=== PATIENT | female | born 1970 | race Caucasian/White ===

== ENCOUNTER 2019-12-18 14:53 | Outpatient (CLI) | payer BC, SELFPAY ==
[2019-12-18 15:06] LABS: Basophils Percent Auto 0.5 % (0.2-1.2); Eosinophils Absolute Auto 0.2 K/mm3 (0-0.3); Eosinophils Percent Auto 2.7 % (0-4.4); Hematocrit 39.4 % (37.0-47.0); Hemoglobin 13.6 g/dL (12.0-15.0); Immature Granulocyte Absolute 0.01 K/mm3 (0.00-0.031); Immature Granulocyte Percent A 0.2 % (0-0.5); Lymphocytes Absolute Auto 1.97 K/mm3 (0.9-3.2); Lymphocytes Percent Auto 33.4 % (18.3-44.2); Mean Corpuscular HGB Conc 34.5 g/dl (32-36); Mean Corpuscular Hemoglobin 32.9 pg (26-34); Mean Corpuscular Volume 95.4 fl (80-100); Mean Platelet Volume 9.8 fl (7.4-10.4); Monocytes Absolute Auto 0.5 K/mm3 (0.1-0.6); Monocytes Percent Auto 8.3 % (2.6-8.5); Neutrophils Absolute Auto 3.2 K/mm3 (1.3-6.7); Neutrophils Percent Auto 54.9 % (45.5-73.1); Platelet Count Result 222 k/mm3 (150-375); Red Blood Count 4.13 M/mm3 (4.2-5.4); Red Cell Distribution Width 11.9 % (11.5-14.5); White Blood Count 5.9 K/mm3 (4.5-10.0)
[2019-12-18 16:49] LABS: Alanine Aminotransferase 13 U/L (4-35); Albumin Level 4.1 g/dL (3.5-5.1); Alkaline Phosphatase 75 U/L (38-126); Aspartate Amino Transferase 24 U/L (14-36); Bilirubin,Total 0.4 mg/dL (0.2-1.3); Blood Urea Nitrogen 15 mg/dL (7-17); Calcium 9.1 mg/dL (8.4-10.2); Carbon Dioxide 21 mmol/L (22-30); Chloride 107 mmol/L (98-107); Estimated Glomerular Filt Rate > 60; Glucose 137 mg/dL (65-105); Potassium 3.9 mmol/L (3.4-5.0); Sodium 135 mmol/L (137-145)
[2019-12-21 12:41] LABS: CA 27.29 17 U/mL (<38)
== END 2019-12-18 14:54 | disposition home or self-care (01) ==
LOC: ANHLAB 14:53
PROVIDERS: PCP Family Medicine; Visit Provider Internal Medicine Hematology & Oncology
DX: C50.912 Malignant neoplasm of unspecified site of left female breast (principal); Z17.0 Estrogen receptor positive status [ER+]
CPT/HCPCS: 36415; 80053; 85025; 86300

== ENCOUNTER 2020-04-30 10:42 | Outpatient (CLI) | payer BC, SELFPAY ==
--- NOTE | ~2020-04-30 | MM_ITS ---
EXAMINATION: MM screening [facility] BI w [facility] HISTORY: Screening TECHNIQUE: Craniocaudal and mediolateral oblique 3-D tomosynthesis images were obtained and synthetic 2-D images were generated. CAD analysis was submitted and interpreted. COMPARISON: Comparison to multiple prior studies sequentially, with oldest reviewed study dated 08/27. BREAST PARENCHYMAL COMPOSITION: There are scattered areas of fibroglandular density. FINDINGS: There is no evidence of suspicious mass, calcification, or architectural distortion to sugg est malignancy in either breast. There has been no suspicious interval change. IMPRESSION: 1. No mammographic evidence of malignancy. 2. Recommend routine screening mammography in one year. BI-RADS Category 1: Negative Reviewed, dictated and finalized at location A.
== END 2020-04-30 10:43 | disposition home or self-care (01) ==
LOC: ANHIMG 10:46
PROVIDERS: PCP Family Medicine; Visit Provider Internal Medicine Hematology & Oncology
DX: Z12.31 Encounter for screening mammogram for malignant neoplasm of breast (principal)
CPT/HCPCS: 77063; 77067

== ENCOUNTER 2020-05-28 10:09 | Outpatient (NON) | payer BC, SELFPAY ==
[2020-05-29 14:57] LABS: SARS-CoV-2 RNA PCR Positive
== END 2020-05-28 10:10 ==
LOC: ANHCOVIDDT 10:11
PROVIDERS: PCP Family Medicine; Visit Provider Physician Assistant
DX: U07.1 COVID-19 (principal)
CPT/HCPCS: 87635; C9803; U0003

== ENCOUNTER 2020-06-24 15:55 | Outpatient (CLI) | payer BC, SELFPAY ==
[2020-06-24 16:15] LABS: Basophils Percent Auto 0.4 % (0.2-1.2); Eosinophils Absolute Auto 0.2 K/mm3 (0-0.3); Hematocrit 40.6 % (37.0-47.0); Hemoglobin 13.5 g/dL (12.0-15.0); Immature Granulocyte Absolute 0.01 K/mm3 (0.00-0.031); Immature Granulocyte Percent A 0.1 % (0-0.5); Lymphocytes Absolute Auto 2.47 K/mm3 (0.9-3.2); Lymphocytes Percent Auto 30.3 % (18.3-44.2); Mean Corpuscular HGB Conc 33.3 g/dl (32-36); Mean Corpuscular Hemoglobin 32.4 pg (26-34); Mean Corpuscular Volume 97.4 fl (80-100); Mean Platelet Volume 9.3 fl (7.4-10.4); Monocytes Absolute Auto 0.5 K/mm3 (0.1-0.6); Monocytes Percent Auto 5.7 % (2.6-8.5); Neutrophils Percent Auto 61.5 % (45.5-73.1); Platelet Count Result 241 k/mm3 (150-375); Red Blood Count 4.17 M/mm3 (4.2-5.4); Red Cell Distribution Width 11.3 % (11.5-14.5); White Blood Count 8.1 K/mm3 (4.5-10.0)
[2020-06-24 17:03] LABS: Alanine Aminotransferase 15 U/L (4-35); Albumin Level 3.8 g/dL (3.5-5.1); Alkaline Phosphatase 83 U/L (38-126); Anion Gap 10 mmol/L (8-16); Aspartate Amino Transferase 26 U/L (14-36); Bilirubin,Total 0.3 mg/dL (0.2-1.3); Blood Urea Nitrogen 23 mg/dL (7-17); Calcium 8.9 mg/dL (8.4-10.2); Carbon Dioxide 22 mmol/L (22-30); Chloride 104 mmol/L (98-107); Estimated Glomerular Filt Rate > 60; Glucose 89 mg/dL (65-105); Potassium 3.8 mmol/L (3.4-5.0); Sodium 136 mmol/L (137-145)
[2020-06-27 14:33] LABS: FSH 42.8 mIU/mL (***)
[2020-06-30 21:17] LABS: Estradiol, Ultrasensitive 17 pg/mL
== END 2020-06-24 15:56 | disposition home or self-care (01) ==
LOC: ANHLAB 15:57
PROVIDERS: PCP Family Medicine; Visit Provider Internal Medicine Hematology & Oncology
DX: C50.912 Malignant neoplasm of unspecified site of left female breast (principal); Z17.0 Estrogen receptor positive status [ER+]
CPT/HCPCS: 36415; 80053; 82670; 83001; 85025

== ENCOUNTER 2020-12-22 09:13 | Outpatient (CLI) | payer BC, SELFPAY ==
--- NOTE | ~2020-12-22 | DEXA_ITS ---
Bone Density Report Name: Kirstie Najera Age: 50 Sex: Female Ethnicity: White Date of : 1970 Indication: postmenopausal; cancer; Referring Provider: Tam, Adelaida Garza Study: Bone densitometry was performed. Exam Date: December 22, 2020 Accession number: [id number] Bone Density: Region BMD T-score Z-score Classification AP Spine (L1-L4) 0.871 -1.6 -1.0 Osteopenia Femoral Neck (Left) 0.696 -1.4 -0.8 Osteopenia Total Hip (Left) 0.812 -1.1 -0.7 Osteopenia Total Hip Bilateral Avg 0.804 -1.2 -0.8 Osteopenia Femoral Neck (Right) 0.737 -1.0 -0.4 Normal Total Hip (Right) 0.795 -1.2 -0.8 Osteopenia World Health Organization criteria for BMD impression classify patients as: Normal (T-score at or above -1.0), Osteopenia (T-score between -1.0 and -2.5), or Osteoporosis (T-score at or below -2.5). 10-year Fracture Risk(1): Major Osteoporotic Fracture 3.5% Hip Fracture 0.2% Reported Risk Factors: [place] (), Neck BMD=0.696, BMI=34.9 (1) FRAX(R) Version 3.08. Fracture probability calculated for an untreated patient. Fracture probability may be lower if the patient has received treatment. Clinical Information Provided by Patient: Has used the following medications: Vitamin D, Calcium Has the following medical conditions: Cancer Patient maximum height was 64 Menopause Age: 47 No regular weight bearing exercise Drinks caffeinated beverages Onset of menses at age 14 Number of children 1 Impression: The patient has low bone mass, based on the Total Spine T-score. The patient has an estimated ten-year risk of hip fracture of 0.2% and an estimated ten-year risk of major fracture of 3.5%, based on the WHO FRAX algorithm. Discussion: BONE DENSITY IS LOW AT ONE OR MORE SKELETAL SITES. This patient's lowest T-score is low at one or more skeletal sites. It meets the World Health Organization's (WHO) criteria for ?low bone mass? (T-score between -1.0 and -2.5). The patient's 10-year risk of fracture as calculated by FRAX is less than the threshold where pharmacological therapy is recommended by the National Osteoporosis Foundation (NOF). However, all treatment decisions require clinical judgment and consideration of individual patient factors, including patient preferences, comorbidities, previous drug use, risk factors not captured in the FRAX model (e.g., frailty, falls, vitamin D deficiency, increased bone turnover, interval significant decline in bone density) and possible under or overestimation of fracture risk by FRAX. The patient should follow a healthful lifestyle (good nutrition with adequate calcium and vitamin D, and appropriate weight-bearing exercise). Follow-Up: Consider repeating this study in 2 to 3 years to reassess this patient's status, or sooner if there is some new clinical indication.
== END 2020-12-22 09:14 | disposition home or self-care (01) ==
LOC: ANHIMG 09:19
PROVIDERS: PCP Family Medicine; Visit Provider Nurse Practitioner Adult Health
DX: Z79.811 Long term (current) use of aromatase inhibitors (principal); M85.89 Other specified disorders of bone density and structure, multiple sites
CPT/HCPCS: 77080

== ENCOUNTER 2020-12-22 09:53 | Outpatient (CLI) | payer BC, SELFPAY ==
[2020-12-22 10:19] LABS: Basophils Percent Auto 0.5 % (0.2-1.2); Eosinophils Absolute Auto 0.1 K/mm3 (0-0.3); Eosinophils Percent Auto 2.4 % (0-4.4); Hematocrit 40.4 % (37.0-47.0); Hemoglobin 13.4 g/dL (12.0-15.0); Immature Granulocyte Absolute 0.01 K/mm3 (0.00-0.031); Immature Granulocyte Percent A 0.2 % (0-0.5); Lymphocytes Absolute Auto 1.51 K/mm3 (0.9-3.2); Lymphocytes Percent Auto 25.5 % (18.3-44.2); Mean Corpuscular HGB Conc 33.2 g/dl (32-36); Mean Corpuscular Hemoglobin 31.8 pg (26-34); Mean Platelet Volume 9.4 fl (7.4-10.4); Monocytes Absolute Auto 0.3 K/mm3 (0.1-0.6); Monocytes Percent Auto 5.8 % (2.6-8.5); Neutrophils Absolute Auto 3.9 K/mm3 (1.3-6.7); Neutrophils Percent Auto 65.6 % (45.5-73.1); Platelet Count Result 260 k/mm3 (150-375); Red Blood Count 4.21 M/mm3 (4.2-5.4); Red Cell Distribution Width 12.3 % (11.5-14.5); White Blood Count 5.9 K/mm3 (4.5-10.0)
[2020-12-22 12:27] LABS: Alanine Aminotransferase 17 U/L (4-35); Albumin Level 3.9 g/dL (3.5-5.1); Alkaline Phosphatase 84 U/L (38-126); Anion Gap 10 mmol/L (8-16); Aspartate Amino Transferase 23 U/L (14-36); Bilirubin,Total 0.2 mg/dL (0.2-1.3); Blood Urea Nitrogen 16 mg/dL (7-17); Calcium 9.1 mg/dL (8.4-10.2); Carbon Dioxide 22 mmol/L (22-30); Chloride 109 mmol/L (98-107); Estimated Glomerular Filt Rate > 60; Glucose 102 mg/dL (65-105); Potassium 4.2 mmol/L (3.4-5.0); Sodium 141 mmol/L (137-145)
[2020-12-22 12:42] LABS: Free T4 Free Thyroxine 0.78 ng/mL (0.78-2.19)
== END 2020-12-22 09:54 | disposition home or self-care (01) ==
LOC: ANHLAB 10:01
PROVIDERS: Physician Assistant; PCP Family Medicine; Visit Provider Internal Medicine Hematology & Oncology
DX: C50.412 Malignant neoplasm of upper-outer quadrant of left female breast (principal); Z17.0 Estrogen receptor positive status [ER+]
CPT/HCPCS: 36415; 80053; 84439; 84443; 85025

== ENCOUNTER 2021-05-15 07:49 | Outpatient (CLI) | payer BC, SELFPAY ==
--- NOTE | ~2021-05-15 | MM_ITS ---
EXAMINATION: MM screening [facility] BI w [facility] HISTORY: Screening mammogram TECHNIQUE: Craniocaudal and mediolateral oblique 3-D tomosynthesis images were obtained and synthetic 2-D images were generated. CAD analysis was submitted and interpreted. COMPARISON: 04/30/2020, 04/18/2019 BREAST PARENCHYMAL COMPOSITION: There are scattered areas of fibroglandular density. FINDINGS: Stable postoperative changes of the upper outer quadrant of the left breast from prior part ial mastectomy for breast cancer. There is no evidence of suspicious mass, calcification, or new arch itectural distortion to suggest malignancy in either breast. There has been no suspicious interval ch rachel. IMPRESSION: 1. Status post left partial mastectomy for breast cancer; No mammographic evidence of malignancy. 2. Recommend routine screening mammography in one year. BI-RADS Category 2: Benign finding(s). Reviewed, dictated and finalized at location A. IMPRESSION: 1. Status post left partial mastectomy for breast cancer; No mammographic evide nce of malignancy. 2. Recommend routine screening mammography in one year. BI-RADS Category 2: Benign finding(s).
== END 2021-05-15 07:50 | disposition home or self-care (01) ==
LOC: ANHIMG 07:51
PROVIDERS: PCP Family Medicine; Visit Provider Internal Medicine Hematology & Oncology
DX: Z12.31 Encounter for screening mammogram for malignant neoplasm of breast (principal)
CPT/HCPCS: 77063; 77067

== ENCOUNTER 2021-06-23 16:02 | Outpatient (CLI) | payer BC, SELFPAY ==
[2021-06-23 16:43] LABS: Basophils Absolute Auto 0.1 K/mm3 (0.0-0.1); Basophils Percent Auto 0.6 % (0.2-1.2); Eosinophils Absolute Auto 0.2 K/mm3 (0-0.3); Eosinophils Percent Auto 2.7 % (0-4.4); Hematocrit 40.1 % (37.0-47.0); Hemoglobin 13.5 g/dL (12.0-15.0); Immature Granulocyte Absolute 0.02 K/mm3 (0.00-0.031); Immature Granulocyte Percent A 0.3 % (0-0.5); Lymphocytes Absolute Auto 2.29 K/mm3 (0.9-3.2); Lymphocytes Percent Auto 29.7 % (18.3-44.2); Mean Corpuscular HGB Conc 33.7 g/dl (32-36); Mean Corpuscular Hemoglobin 32.6 pg (26-34); Mean Corpuscular Volume 96.9 fl (80-100); Mean Platelet Volume 9.4 fl (7.4-10.4); Monocytes Absolute Auto 0.5 K/mm3 (0.1-0.6); Monocytes Percent Auto 6.9 % (2.6-8.5); Neutrophils Absolute Auto 4.6 K/mm3 (1.3-6.7); Neutrophils Percent Auto 59.8 % (45.5-73.1); Platelet Count Result 305 k/mm3 (150-375); Red Blood Count 4.14 M/mm3 (4.2-5.4); Red Cell Distribution Width 11.9 % (11.5-14.5); White Blood Count 7.7 K/mm3 (4.5-10.0)
[2021-06-23 16:59] LABS: Alanine Aminotransferase 20 U/L (4-35); Albumin Level 4.2 g/dL (3.5-5.1); Alkaline Phosphatase 105 U/L (38-126); Anion Gap 10 mmol/L (8-16); Aspartate Amino Transferase 23 U/L (14-36); Bilirubin,Total 0.3 mg/dL (0.2-1.3); Blood Urea Nitrogen 17 mg/dL (7-17); Calcium 9.3 mg/dL (8.4-10.2); Carbon Dioxide 27 mmol/L (22-30); Chloride 103 mmol/L (98-107); Estimated Glomerular Filt Rate 59; Glucose 99 mg/dL (65-110); Potassium 3.4 mmol/L (3.4-5.0); Sodium 140 mmol/L (137-145)
[2021-06-26 05:53] LABS: CA 15-3 11 U/mL (<32)
== END 2021-06-23 16:03 | disposition home or self-care (01) ==
PROVIDERS: PCP Family Medicine; Visit Provider Internal Medicine Hematology & Oncology
DX: C50.412 Malignant neoplasm of upper-outer quadrant of left female breast (principal); Z17.0 Estrogen receptor positive status [ER+]
CPT/HCPCS: 36415; 80053; 85025; 86300

== ENCOUNTER 2021-07-14 17:03 | Outpatient (CLI) | payer BC, SELFPAY ==
--- NOTE | ~2021-07-14 | XR_ITS ---
EXAMINATION: XR shoulder RT min 2V INDICATION: Chronic right shoulder pain TECHNIQUE: Four views of the right shoulder are submitted. COMPARISON: None FINDINGS: Normal alignment. No fracture. There is mild glenohumeral and acromioclavicular joint osteo arthritis. Soft tissues are unremarkable. IMPRESSION: 1. No acute osseous abnormality. Reviewed, dictated and finalized at location F. [facility]
== END 2021-07-14 17:04 | disposition home or self-care (01) ==
LOC: ANHIMG 17:07
PROVIDERS: PCP Family Medicine; Visit Provider Internal Medicine Hematology & Oncology
DX: M19.011 Primary osteoarthritis, right shoulder (principal)
CPT/HCPCS: 73030

== ENCOUNTER 2021-12-21 15:56 | Outpatient (CLI) | payer BC, SELFPAY ==
[2021-12-21 16:14] LABS: Basophils Percent Auto 0.4 % (0.2-1.2); Eosinophils Absolute Auto 0.1 K/mm3 (0-0.3); Eosinophils Percent Auto 1.8 % (0-4.4); Hematocrit 42.1 % (37.0-47.0); Hemoglobin 13.3 g/dL (12.0-15.0); Immature Granulocyte Absolute 0.02 K/mm3 (0.00-0.031); Immature Granulocyte Percent A 0.3 % (0-0.5); Lymphocytes Absolute Auto 2.22 K/mm3 (0.9-3.2); Lymphocytes Percent Auto 30.7 % (18.3-44.2); Mean Corpuscular HGB Conc 31.6 g/dl (32-36); Mean Corpuscular Volume 101.2 fl (80-100); Mean Platelet Volume 9.7 fl (7.4-10.4); Monocytes Absolute Auto 0.4 K/mm3 (0.1-0.6); Neutrophils Absolute Auto 4.5 K/mm3 (1.3-6.7); Neutrophils Percent Auto 61.8 % (45.5-73.1); Platelet Count Result 272 k/mm3 (150-375); Red Blood Count 4.16 M/mm3 (4.2-5.4); Red Cell Distribution Width 11.8 % (11.5-14.5); White Blood Count 7.2 K/mm3 (4.5-10.0)
[2021-12-21 16:47] LABS: Alanine Aminotransferase 20 U/L (6-35); Alkaline Phosphatase 97 U/L (38-126); Anion Gap 9 mmol/L (8-16); Aspartate Amino Transferase 24 U/L (14-36); Bilirubin,Total 0.2 mg/dL (0.2-1.3); Blood Urea Nitrogen 13 mg/dL (7-17); Calcium 8.5 mg/dL (8.4-10.2); Carbon Dioxide 22 mmol/L (22-30); Chloride 107 mmol/L (98-107); Estimated Glomerular Filt Rate > 60; Glucose 123 mg/dL (65-110); Potassium 3.2 mmol/L (3.4-5.0); Sodium 138 mmol/L (137-145)
[2021-12-24 05:06] LABS: CA 15-3 10 U/mL (<32)
== END 2021-12-21 15:57 | disposition home or self-care (01) ==
LOC: ANHLAB 15:58
PROVIDERS: PCP Family Medicine; Visit Provider Internal Medicine Hematology & Oncology
DX: C50.412 Malignant neoplasm of upper-outer quadrant of left female breast (principal); Z17.0 Estrogen receptor positive status [ER+]
CPT/HCPCS: 36415; 80053; 85025; 86300

== ENCOUNTER 2022-05-17 09:09 | Outpatient (CLI) | payer BC, SELFPAY ==
--- NOTE | ~2022-05-17 | MM_ITS ---
EXAMINATION: MM screening [facility] BI w [facility] HISTORY: Screening TECHNIQUE: Craniocaudal and mediolateral oblique 3-D tomosynthesis images were obtained and synthetic 2-D images were generated. CAD analysis was submitted and interpreted. COMPARISON: Comparison to multiple prior studies sequentially, with oldest reviewed study dated 08/2018. BREAST PARENCHYMAL COMPOSITION: There are scattered areas of fibroglandular density. FINDINGS: There is no evidence of suspicious mass, calcification, or architectural distortion to sugg est malignancy in either breast. There has been no suspicious interval change. IMPRESSION: 1. No mammographic evidence of malignancy. 2. Recommend routine screening mammography in one year. BI-RADS Category 1: Negative Reviewed, dictated and finalized at location A.
== END 2022-05-17 09:10 | disposition home or self-care (01) ==
LOC: ANHIMG 09:10
PROVIDERS: PCP Family Medicine; Visit Provider Internal Medicine Hematology & Oncology
DX: Z12.31 Encounter for screening mammogram for malignant neoplasm of breast (principal)
CPT/HCPCS: 77063; 77067

== ENCOUNTER 2022-08-13 15:54 | Outpatient (CLI) | payer BC, SELFPAY ==
[2022-08-13 16:05] LABS: Basophils Absolute Auto 0.1 K/mm3 (0.0-0.1); Basophils Percent Auto 0.9 % (0.2-1.2); Eosinophils Absolute Auto 0.2 K/mm3 (0-0.3); Eosinophils Percent Auto 2.2 % (0-4.4); Hemoglobin 14.2 g/dL (12.0-15.0); Immature Granulocyte Absolute 0.02 K/mm3 (0.00-0.031); Immature Granulocyte Percent A 0.2 % (0-0.5); Lymphocytes Absolute Auto 2.77 K/mm3 (0.9-3.2); Lymphocytes Percent Auto 34.5 % (18.3-44.2); Mean Corpuscular Hemoglobin 32.3 pg (26-34); Mean Corpuscular Volume 97.9 fl (80-100); Mean Platelet Volume 9.4 fl (7.4-10.4); Monocytes Absolute Auto 0.5 K/mm3 (0.1-0.6); Monocytes Percent Auto 5.7 % (2.6-8.5); Neutrophils Absolute Auto 4.5 K/mm3 (1.3-6.7); Neutrophils Percent Auto 56.5 % (45.5-73.1); Platelet Count Result 320 k/mm3 (150-375); Red Blood Count 4.39 M/mm3 (4.2-5.4); Red Cell Distribution Width 11.6 % (11.5-14.5)
[2022-08-13 16:33] LABS: Alanine Aminotransferase 26 U/L (6-35); Albumin Level 3.9 g/dL (3.5-5.1); Alkaline Phosphatase 117 U/L (38-126); Anion Gap 7 mmol/L (8-16); Aspartate Amino Transferase 35 U/L (14-36); Bilirubin,Total 0.4 mg/dL (0.2-1.3); Blood Urea Nitrogen 15 mg/dL (7-17); Calcium 8.7 mg/dL (8.4-10.2); Carbon Dioxide 29 mmol/L (22-30); Chloride 101 mmol/L (98-107); Estimated Glomerular Filt Rate > 60; Glucose 116 mg/dL (65-110); Potassium 4.2 mmol/L (3.4-5.0); Sodium 137 mmol/L (137-145)
[2022-08-18 04:40] LABS: CA 15-3 16 U/mL (<32)
== END 2022-08-13 15:55 | disposition home or self-care (01) ==
LOC: ANHLAB 15:55
PROVIDERS: PCP Family Medicine; Visit Provider Internal Medicine Hematology & Oncology
DX: C50.412 Malignant neoplasm of upper-outer quadrant of left female breast (principal); Z17.0 Estrogen receptor positive status [ER+]
CPT/HCPCS: 36415; 80053; 85025; 86300

== ENCOUNTER 2023-02-10 15:20 | Outpatient (CLI) | payer OTHER, SELFPAY ==
[2023-02-10 15:34] LABS: Basophils Percent Auto 0.5 % (0.2-1.2); Eosinophils Absolute Auto 0.2 K/mm3 (0-0.3); Eosinophils Percent Auto 1.8 % (0-4.4); Hemoglobin 14.3 g/dL (12.0-15.0); Immature Granulocyte Absolute 0.03 K/mm3 (0.00-0.031); Immature Granulocyte Percent A 0.4 % (0-0.5); Lymphocytes Absolute Auto 2.23 K/mm3 (0.9-3.2); Lymphocytes Percent Auto 26.7 % (18.3-44.2); Mean Corpuscular Hemoglobin 32.4 pg (26-34); Mean Corpuscular Volume 95.2 fl (80-100); Mean Platelet Volume 9.5 fl (7.4-10.4); Monocytes Absolute Auto 0.5 K/mm3 (0.1-0.6); Monocytes Percent Auto 5.5 % (2.6-8.5); Neutrophils Absolute Auto 5.4 K/mm3 (1.3-6.7); Neutrophils Percent Auto 65.1 % (45.5-73.1); Platelet Count Result 296 k/mm3 (150-375); Red Blood Count 4.41 M/mm3 (4.2-5.4); Red Cell Distribution Width 11.8 % (11.5-14.5); White Blood Count 8.3 K/mm3 (4.5-10.0)
[2023-02-10 16:20] LABS: Alanine Aminotransferase 30 U/L (6-35); Albumin Level 4.2 g/dL (3.5-5.1); Alkaline Phosphatase 100 U/L (38-126); Anion Gap 12 mmol/L (8-16); Aspartate Amino Transferase 33 U/L (14-36); Bilirubin,Total 0.4 mg/dL (0.2-1.3); Blood Urea Nitrogen 12 mg/dL (7-17); Calcium 9.1 mg/dL (8.4-10.2); Carbon Dioxide 27 mmol/L (22-30); Chloride 102 mmol/L (98-107); Estimated Glomerular Filt Rate > 60; Glucose 113 mg/dL (65-110); Potassium 3.7 mmol/L (3.4-5.0); Sodium 141 mmol/L (137-145)
[2023-02-14 17:16] LABS: CA 15-3 12 U/mL (<32)
== END 2023-02-10 15:21 | disposition home or self-care (01) ==
LOC: ANHLAB 15:22
PROVIDERS: PCP Family Medicine; Visit Provider Internal Medicine Hematology & Oncology
DX: C50.412 Malignant neoplasm of upper-outer quadrant of left female breast (principal); Z17.0 Estrogen receptor positive status [ER+]
CPT/HCPCS: 36415; 80053; 85025; 86300

== ENCOUNTER 2023-04-27 16:19 | Emergency (ER) | payer OTHER, SELFPAY ==
[2023-04-27 16:31] VITALS: BP 105/74; PULSE 104; RESP 18; TEMP 37.4; O2SAT 96
--- NOTE | 2023-04-27 16:51 | ED.URI ---
HPI - URI/Sore Throat General Chief Complaint: Upper Respiratory Infection Stated Complaint: Sore Throat,Cough,Congestion,Headache Time Seen by Provider: 04/27/23 16:43 Source: patient and RN notes reviewed Mode of arrival: ambulatory Limitations: no limitations History of Present Illness HPI Narrative: Patient presents today complaining of a 3 day history of fever up to 100.5, nasal congestion, headache, cough, bilateral ear pressure. Denies shortness of breath, nausea, vomiting, diarrhea. Patient did a home COVID test 2 days ago that was negative. She has been taking Tylenol at home without much relief. She called her PCP's office 2 days ago and was started on Augmentin over the phone, which he states has not been helping. She saw her PCP today in office and was told to come to urgent care today for an influenza test. Related Data Home Medications Medication Instructions Recorded Confirmed duloxetine 60 mg capsule,delayed 60 mg PO DAILY 11/17/22 04/27/23 release ergocalciferol (vitamin D2) 1,250 1,250 mcg PO WEEKLY 11/17/22 04/27/23 mcg (50,000 unit) capsule meloxicam 15 mg tablet 15 mg PO DAILY 11/17/22 04/27/23 Allergies Allergy/AdvReac Type Severity Reaction Status Date / Time hydrocodone AdvReac Mild Itching Verified 04/27/23 16:23 steri strips AdvReac Mild Itching Uncoded 04/27/23 16:23 Review of Systems Review of Systems: CONSTITUTIONAL: Denies chills, or sweats.+ body aches, fever EYES: Denies visual changes, redness, or discharge. ENT: Denies rhinorrhea, sore throat.+ bilateral ear pain, congestion CARDIOVASCULAR: Denies chest pain, palpitations, or edema. RESPIRATORY: Denies dyspnea.+ cough GASTROINTESTINAL: Denies abdominal pain, nausea, vomiting, or diarrhea. GENITOURINARY: Denies dysuria or hematuria. SKIN: Denies rash, itching, or wounds. MUSCULOSKELETAL: Denies back pain, joint pain, or myalgia. NEUROLOGIC: Denies numbness, tingling, or weakness.+ headache PSYCH: Denies depression or anxiety. 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 ER+/OK-/HER-2/lux positive History of pancreatitis Overactive bladder Tinnitus, bilateral Vitamin D deficiency Surgical History Surgical History History of cholecystectomy History of lumpectomy of left breast 03/28/2017 Family History Family History Father Diabetes mellitus Social History Social History Smoking status: Former smoker Smoking end date: 06/07/23 Alcohol intake: current Substance use: never Lack of Transportation: No Lack of Food: Never True Current Housing: I Have Housing Concerned About Future Housing: No Difficulty Paying Gas/Electric Bills: No Difficulty Paying for Meds: No Currently Unemployed: No Education: Master's Degree or Higher Difficulty w/ Childcare or Family Care: No Living arrangements: with family Occupation/Education: occupation Gender identity (if verbalized by the patient): Female Sexual Orientation (if Verbalized by the Patient): Straight or Heterosexual Spiritual care concerns: No Comments At time of signature, I have reviewed and agree with nursing past medical, surgical, social and family history unless otherwise noted. Please see nursing chart for further information. There is no relevant family history pertinent to the presenting complaint Exam Narrative: GENERAL: Mildly ill-appearing, well-nourished, and in no acute distress. HEAD: Normocephalic, atraumatic. EYES: EOMI. No redness or drainage. Conjunctivae normal. ENT: Mucous membranes pink and moist. Nares congested. No rhi
== END 2023-04-27 17:04 | disposition home or self-care (01) ==
PROVIDERS: Emergency Provider Nurse Practitioner; PCP Physician Assistant
DX: B34.9 Viral infection, unspecified (principal); Z79.899 Other long term (current) drug therapy; Z79.1 Long term (current) use of non-steroidal anti-inflammatories (NSAID); Z85.3 Personal history of malignant neoplasm of breast; Z87.891 Personal history of nicotine dependence; Z20.822 Contact with and (suspected) exposure to COVID-19
CPT/HCPCS: 87426; 87804; 99213; C9803; G0463

== ENCOUNTER 2023-05-27 15:34 | Outpatient (CLI) | payer OTHER, SELFPAY ==
--- NOTE | ~2023-05-27 | MM_ITS ---
EXAMINATION: MM screening [facility] BI w [facility] HISTORY: Screening mammogram TECHNIQUE: Craniocaudal and mediolateral oblique 3-D tomosynthesis images were obtained and synthetic 2-D images were generated. CAD analysis was submitted and interpreted. COMPARISON: 05/17/2022, 05/15/2021, 04/30/2020 BREAST PARENCHYMAL COMPOSITION: There are scattered areas of fibroglandular density. FINDINGS: There are stable lumpectomy changes in the upper outer quadrant of the left breast. No susp icious mass, calcification, or architectural distortion are identified in either breast to suggest ma lignancy. There has been no suspicious interval change. IMPRESSION: 1. No mammographic evidence of malignancy. 2. Recommend routine screening mammography in one year. BI-RADS Category 2: Benign finding(s). Reviewed, dictated and finalized at location A. [employer]
== END 2023-05-27 15:35 | disposition home or self-care (01) ==
LOC: ANHIMG 16:02
PROVIDERS: PCP Physician Assistant; Visit Provider Internal Medicine Hematology & Oncology
DX: Z12.31 Encounter for screening mammogram for malignant neoplasm of breast (principal)
CPT/HCPCS: 77063; 77067

== ENCOUNTER 2023-08-12 15:41 | Outpatient (CLI) | payer OTHER, SELFPAY ==
[2023-08-12 15:54] LABS: Basophils Absolute Auto 0.1 K/mm3 (0.0-0.1); Basophils Percent Auto 0.6 % (0.2-1.2); Eosinophils Absolute Auto 0.1 K/mm3 (0-0.3); Eosinophils Percent Auto 1.5 % (0-4.4); Hematocrit 40.9 % (37.0-47.0); Hemoglobin 13.7 g/dL (12.0-15.0); Immature Granulocyte Absolute 0.02 K/mm3 (0.00-0.031); Immature Granulocyte Percent A 0.2 % (0-0.5); Lymphocytes Absolute Auto 2.22 K/mm3 (0.9-3.2); Lymphocytes Percent Auto 24.8 % (18.3-44.2); Mean Corpuscular HGB Conc 33.5 g/dl (32-36); Mean Corpuscular Hemoglobin 32.2 pg (26-34); Mean Corpuscular Volume 96.2 fl (80-100); Mean Platelet Volume 9.1 fl (7.4-10.4); Monocytes Absolute Auto 0.5 K/mm3 (0.1-0.6); Monocytes Percent Auto 5.9 % (2.6-8.5); Platelet Count Result 313 k/mm3 (150-375); Red Blood Count 4.25 M/mm3 (4.2-5.4); Red Cell Distribution Width 11.9 % (11.5-14.5); White Blood Count 8.9 K/mm3 (4.5-10.0)
[2023-08-12 16:30] LABS: Alanine Aminotransferase 19 U/L (6-35); Albumin Level 4.1 g/dL (3.5-5.1); Alkaline Phosphatase 113 U/L (38-126); Anion Gap 5 mmol/L (8-16); Aspartate Amino Transferase 25 U/L (14-36); Bilirubin,Total 0.4 mg/dL (0.2-1.3); Blood Urea Nitrogen 13 mg/dL (7-17); Calcium 9.4 mg/dL (8.4-10.2); Carbon Dioxide 29 mmol/L (22-30); Chloride 103 mmol/L (98-107); Estimated Glomerular Filt Rate > 60; Glucose 94 mg/dL (65-110); Sodium 137 mmol/L (137-145)
[2023-08-16 14:14] LABS: CA 15-3 12 U/mL (<32)
== END 2023-08-12 15:42 | disposition home or self-care (01) ==
LOC: ANHLAB 15:43
PROVIDERS: PCP Physician Assistant; Visit Provider Internal Medicine Hematology & Oncology
DX: C50.412 Malignant neoplasm of upper-outer quadrant of left female breast (principal); Z17.0 Estrogen receptor positive status [ER+]
CPT/HCPCS: 36415; 80053; 85025; 86300

== ENCOUNTER 2023-09-15 14:40 | Emergency (ER) | payer OTHER, SELFPAY ==
[2023-09-15 14:53] VITALS: BP 133/72; PULSE 101; RESP 18; TEMP 36.7; O2SAT 97
--- NOTE | 2023-09-15 15:29 | ED.URI ---
HPI - URI/Sore Throat General Chief Complaint: Upper Respiratory Infection Stated Complaint: fatigue, congestion Time Seen by Provider: 09/15/23 15:17 Source: patient and RN notes reviewed Mode of arrival: ambulatory Limitations: no limitations History of Present Illness HPI Narrative: Patient presents today complaining of 3 day history of nasal congestion, fatigue, headache, sweats, bilateral ear pain. Currently rates her pain 3/10 and has been taking Tylenol cold and flu with mild relief. Denies shortness of breath or fever. sick with similar symptoms. Related Data Home Medications Medication Instructions Recorded Confirmed duloxetine 60 mg capsule,delayed 60 mg PO DAILY 11/17/22 09/15/23 release ergocalciferol (vitamin D2) 1,250 1,250 mcg PO WEEKLY 11/17/22 09/15/23 mcg (50,000 unit) capsule meloxicam 15 mg tablet 15 mg PO DAILY 11/17/22 09/15/23 Allergies Allergy/AdvReac Type Severity Reaction Status Date / Time hydrocodone AdvReac Mild Itching Verified 09/15/23 14:57 steri strips AdvReac Mild Itching Uncoded 09/15/23 14:57 Review of Systems Review of Systems: CONSTITUTIONAL: Denies body aches, fever, chills, or sweats.+ fatigue EYES: Denies visual changes, redness, or discharge. ENT: Denies rhinorrhea, sore throat. + bilateral ear pain, congestion CARDIOVASCULAR: Denies chest pain, palpitations, or edema. RESPIRATORY: Denies cough or dyspnea. GASTROINTESTINAL: Denies abdominal pain, nausea, vomiting, or diarrhea. GENITOURINARY: Denies dysuria or hematuria. SKIN: Denies rash, itching, or wounds. MUSCULOSKELETAL: Denies back pain, joint pain, or myalgia. NEUROLOGIC: Denies numbness, tingling, or weakness.+ headache PSYCH: Denies depression or anxiety. 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 ER+/FL-/HER-2/lux positive History of pancreatitis Overactive bladder Tinnitus, bilateral Vitamin D deficiency Surgical History Surgical History History of cholecystectomy History of lumpectomy of left breast 03/28/2017 Family History Family History Father Diabetes mellitus Social History Social History Smoking status: Former smoker Smoking end date: 06/07/23 Alcohol intake: current Substance use: never Lack of Transportation: No Lack of Food: Never True Current Housing: I Have Housing Concerned About Future Housing: No Difficulty Paying Gas/Electric Bills: No Difficulty Paying for Meds: No Currently Unemployed: No Education: Master's Degree or Higher Difficulty w/ Childcare or Family Care: No Living arrangements: with family Occupation/Education: occupation Gender identity (if verbalized by the patient): Female Sexual Orientation (if Verbalized by the Patient): Straight or Heterosexual Spiritual care concerns: No Comments At time of signature, I have reviewed and agree with nursing past medical, surgical, social and family history unless otherwise noted. Please see nursing chart for further information. There is no relevant family history pertinent to the presenting complaint Exam Narrative: GENERAL: Mildly ill-appearing, well-nourished, and in no acute distress. HEAD: Normocephalic, atraumatic. EYES: EOMI. No redness or drainage. Conjunctivae normal. ENT: Mucous membranes pink and moist. Nares severely congested with rhinorrhea. TMs normal bilaterally. Throat normal. Uvula midline. NECK: Normal AROM. Supple. No lymphadenopathy. CHEST: No respiratory distress. Clear to auscultation. HEART: Regular rate and rhythm. No murmur appreciated. EXTREMITIES: Normal
== END 2023-09-15 15:41 | disposition home or self-care (01) ==
PROVIDERS: Emergency Provider Nurse Practitioner; PCP Physician Assistant
DX: B34.9 Viral infection, unspecified (principal); Z20.822 Contact with and (suspected) exposure to COVID-19; Z87.891 Personal history of nicotine dependence; E55.9 Vitamin D deficiency, unspecified; M51.36 Other intervertebral disc degeneration, lumbar region; Z85.3 Personal history of malignant neoplasm of breast; Z90.12 Acquired absence of left breast and nipple; F41.9 Anxiety disorder, unspecified
CPT/HCPCS: 87426; 87804; 99213; G0463

== ENCOUNTER 2024-05-29 15:11 | Outpatient (CLI) | payer OTHER, SELFPAY ==
--- NOTE | ~2024-05-29 | MM_ITS ---
EXAMINATION: MM screening [facility] BI w [facility] HISTORY: Screening mammogram TECHNIQUE: Craniocaudal and mediolateral oblique 3-D tomosynthesis images were obtained and synthetic 2-D images were generated. CAD analysis was submitted and interpreted. COMPARISON: 05/27/2023, 05/17/2022, 05/15/2021 BREAST PARENCHYMAL COMPOSITION:Not Dense. There are scattered areas of fibroglandular density. FINDINGS: Stable postoperative distortion at the upper left breast. No suspicious mass, calcification , or architectural distortion are identified in either breast to suggest malignancy. There has been n o suspicious interval change. IMPRESSION: No mammographic evidence of malignancy. Recommend routine screening mammography in one year. BI-RADS Category 2: Benign finding(s). Reviewed, dictated and finalized at location . [facility]
== END 2024-05-29 15:12 | disposition home or self-care (01) ==
LOC: ANHIMG 15:12
PROVIDERS: PCP Family Medicine; Visit Provider Internal Medicine Hematology & Oncology
DX: Z12.31 Encounter for screening mammogram for malignant neoplasm of breast (principal)
CPT/HCPCS: 77063; 77067

== ENCOUNTER 2024-05-30 07:00 | Outpatient (NON) | payer OTHER, SELFPAY | END 2024-05-30 07:01 | disposition home or self-care (01) | PROVIDERS: PCP Family Medicine; Visit Provider Internal Medicine Gastroenterology | DX: K52.9 Noninfective gastroenteritis and colitis, unspecified (principal) | CPT/HCPCS: 88305 ==

== ENCOUNTER 2024-05-30 09:48 | Day surgery (SDC) | payer OTHER, SELFPAY ==
[2024-04-24 14:00] VITALS: BMI 39.3
[2024-05-15 15:11] VITALS: BMI 39.0
--- NOTE | 2024-05-30 06:49 | P.PNAN_ITS ---
Anes - Initial Pre Proc Eval Procedure: Operation Date: 05/30/24 12:00 Proposed Procedures p Diagnostic Colonoscopy - Demario Conley MD Date/Time: 05/30/24 06:49 Surgeon: Demario Conley MD Pre Op Diagnosis: Chronic diarrhea Patient Data Age: 53 Gender: F Height: 1.6 m Weight: 100 kg Allergies Allergy/AdvReac Type Severity Reaction Status Date / Time latex Allergy Unknown Unknown Verified 05/30/24 11:07 hydrocodone AdvReac Mild Itching Verified 05/30/24 11:07 steri strips AdvReac Mild Itching Uncoded 05/30/24 11:07 Home Medications Medication Instructions Recorded Confirmed Type duloxetine 60 mg capsule,delayed 60 mg PO DAILY 11/17/22 05/30/24 History release tolterodine 4 mg capsule,extended 4 mg PO DAILY #30 caps 11/01/23 05/30/24 Rx release 24 hr alprazolam 0.5 mg tablet 0.5 mg PO DAILY PRN Anxiety 05/15/24 History berberine chloride 500 mg capsule 500 mg PO DAILY 05/15/24 05/15/24 History ikdxefkem-Cb-elxwx-mushroomcmb 300 1 tablet PO DAILY 05/15/24 05/15/24 History mg-100 mcg-200 mg-250 mg tablet wheat dex-L. acid-aspartame 4 12 g PO DAILY 05/15/24 05/30/24 History gram-500 million cell/6 gram oral powder (Fiber With Probiotic) acetaminophen 300 mg-codeine 30 mg 1 tablet PO Q12H PRN pain #30 tabs 05/30/24 Rx tablet Patient hx anesthesia problems: none Family hx anesthesia problems: none Results Review: All pre-operative results and documents have been reviewed as part of the pre- operative evaluation. 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 ER+/ID-/HER-2/lux positive History of pancreatitis Overactive bladder Tinnitus, bilateral Vitamin D deficiency Surgical History Surgical History History of cholecystectomy History of lumpectomy of left breast 03/28/2017 Family History Family History Father Diabetes mellitus Social History Social History Smoking status: Former smoker Tobacco type: cigarettes Smoking end date: 06/07/23 Alcohol intake: current Substance use: never Substance use type: does not use Lack of Transportation: No Lack of Food: Never True Current Housing: I Have Housing Concerned About Future Housing: No Difficulty Paying Gas/Electric Bills: No Difficulty Paying for Meds: No Currently Unemployed: No Education: Master's Degree or Higher Difficulty w/ Childcare or Family Care: No Living arrangements: with family Occupation/Education: occupation Gender identity (if verbalized by the patient): Female Sexual Orientation (if Verbalized by the Patient): Straight or Heterosexual Spiritual care concerns: No Anes - Eval Final PreProcedure Day of Procedure 05/30/24 06:49 Patient weight: obese Heart: regular rate and rhythm Lungs: clear to auscultation Airway: Mallampati scale class II Neurological: alert and oriented Last oral intake: >/= 8 hours ASA classification: II Emergent: no Anesthetic plan: proceed Anesthesia type and monitoring: general GIVS and standard monitoring Results Review: All pre-operative results and documents have been reviewed as part of the pre- operative evaluation. Informed Consent: The patient's anesthetic plan and its attendant risks and benefits were discussed with the patient/family/POA. Questions were solicited and answers provided to the satisfaction of the patient/family/POA.
[2024-05-30 11:08] VITALS: BP 121/85; PULSE 80; RESP 16; TEMP 35.9; O2SAT 100; BMI 38.2
--- NOTE | 2024-05-30 11:12 | P.HP_ITS ---
History of Present Illness History of Present Illness Consent: Risks, benefits, and alternatives have been discussed and questions answered. Patient agrees to proceed with procedure. Chief complaint: Chronic diarrhea Narrative: Kirstie Najera is a 53 year old female for colonoscopy. Patient complains of chronic diarrhea. Typically soft stools. The volume and frequency seems to fluctuate. Patient is uncertain but attributes some of this to her diet. Teri ent denies any weight loss. She has no bleeding. Occasionally notices mucus in her stool. Family history is noncontributory. Patient referred today for colonoscopy because of this diarrhea. She feels as though she has had improvement with probiotics . 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 ER+/[place]-/HER-2/lux positive History of pancreatitis Overactive bladder Tinnitus, bilateral Vitamin D deficiency Surgical History Surgical History History of cholecystectomy History of lumpectomy of left breast 03/28/2017 Family History Family History Father Diabetes mellitus Social History Social History Smoking status: Former smoker Tobacco type: cigarettes Smoking end date: 06/07/23 Alcohol intake: current Substance use: never Substance use type: does not use Lack of Transportation: No Lack of Food: Never True Current Housing: I Have Housing Concerned About Future Housing: No Difficulty Paying Gas/Electric Bills: No Difficulty Paying for Meds: No Currently Unemployed: No Education: Master's Degree or Higher Difficulty w/ Childcare or Family Care: No Living arrangements: with family Occupation/Education: occupation Gender identity (if verbalized by the patient): Female Sexual Orientation (if Verbalized by the Patient): Straight or Heterosexual Spiritual care concerns: No Meds Home Medications and Allergies Home Medications Medication Instructions Recorded Confirmed Type duloxetine 60 mg capsule,delayed 60 mg PO DAILY 11/17/22 05/30/24 History release tolterodine 4 mg capsule,extended 4 mg PO DAILY #30 caps 11/01/23 05/30/24 Rx release 24 hr alprazolam 0.5 mg tablet 0.5 mg PO DAILY PRN Anxiety 05/15/24 History berberine chloride 500 mg capsule 500 mg PO DAILY 05/15/24 05/15/24 History oqlpjlehm-Ma-zttwa-mushroomcmb 300 1 tablet PO DAILY 05/15/24 05/15/24 History mg-100 mcg-200 mg-250 mg tablet wheat dex-L. acid-aspartame 4 12 g PO DAILY 05/15/24 05/30/24 History gram-500 million cell/6 gram oral powder (Fiber With Probiotic) acetaminophen 300 mg-codeine 30 mg 1 tablet PO Q12H PRN pain #30 tabs 05/30/24 Rx tablet Allergies Allergy/AdvReac Type Severity Reaction Status Date / Time latex Allergy Unknown Unknown Verified 05/30/24 11:07 hydrocodone AdvReac Mild Itching Verified 05/30/24 11:07 steri strips AdvReac Mild Itching Uncoded 05/30/24 11:07 Vital Signs Vital Signs - 24 hr 05/30/24 11:08 Temperature 96.7 F L Pulse Rate 80 Respiratory Rate 16 Blood Pressure 121/85 Pulse Oximetry 100 Oxygen Delivery Room Air Exam Narrative: Physical exam reveals patient to be alert. Vital signs stable. HEENT exam is unremarkable. Patient is anicteric. Lungs are clear to auscultation and percussion. Heart is without murmur or extra sounds. Abdomen bowel sounds are present soft nontender with no organomegaly. Digital and external rectal exam is normal. Assessment and Plan Assessment and plan (1) Chronic diarrhea: Code(s): K52.9 - Noninfective gastroenteritis and colitis, unspecified Status: Acute Assessment and Plan: Patient with chronic diarrhea. Plan for colonoscopy and biopsies of the colon . I suggest adding FiberCon 2 tabs p.o. b.i.d. for possible irritable bowel syndrome. Additional recommendations may be given after endoscopy
[2024-05-30] MEDS: LACTATED RINGERS 1,000 ML 150 ML IV CONT (11:26)
[2024-05-30 11:42] VITALS: BP 93/52; PULSE 85; RESP 18; O2SAT 100
[2024-05-30 11:52] VITALS: BP 97/67; PULSE 72; RESP 16; O2SAT 100
[2024-05-30 12:02] VITALS: BP 119/84; PULSE 74; RESP 15; O2SAT 100
--- NOTE | 2024-05-30 12:33 | WPDANESPN ---
Anes - Prog Note Post-Op Date/Time: 05/30/24 12:33 Cardiovascular status: normal Respiratory status: normal Airway patency: baseline Mental status: baseline Post-Op hydration status: normal Vital Signs: Last Vital Signs Temp 35.9 C L 05/30/24 11:08 Pulse 74 05/30/24 12:02 Resp 15 05/30/24 12:02 BP 119/84 05/30/24 12:02 Pulse Ox 100 05/30/24 12:02 O2 Del Method Room Air 05/30/24 12:02 Pain Score (VAS): 0 I/O: Intake & Output 05/29/24 05/30/24 05/30/24 23:59 07:59 15:59 Intake Total 0 Balance 0 Post-procedural complaints: none Patient Feedback: Patient satisfied with anesthetic care. Other Findings: Patient vital signs back to baseline. Patient denies nausea and vomiting. Patient's pain under control. Patient OK for discharge.
== END 2024-05-30 12:25 | disposition home or self-care (01) ==
PROVIDERS: PCP Family Medicine; Visit Provider Internal Medicine Gastroenterology
PROC: 0DJD8ZZ Inspection of Lower Intestinal Tract, Via Natural or Artificial Opening Endoscopic (ICD-10-PCS; CPT 45378; principal; 2024-05-30 12:00)
DX: R19.7 Diarrhea, unspecified (principal); K64.8 Other hemorrhoids
CPT/HCPCS: 45380

== ENCOUNTER 2024-05-31 15:50 | Outpatient (CLI) | payer OTHER, SELFPAY ==
[2024-05-31 16:01] LABS: Basophils Percent Auto 0.5 % (0.2-1.2); Eosinophils Absolute Auto 0.2 K/mm3 (0-0.3); Eosinophils Percent Auto 1.8 % (0-4.4); Immature Granulocyte Absolute 0.03 K/mm3 (0.00-0.031); Immature Granulocyte Percent A 0.3 % (0-0.5); Lymphocytes Absolute Auto 2.49 K/mm3 (0.9-3.2); Lymphocytes Percent Auto 28.8 % (18.3-44.2); Mean Corpuscular HGB Conc 33.3 g/dl (32-36); Mean Corpuscular Volume 95.9 fl (80-100); Mean Platelet Volume 9.2 fl (7.4-10.4); Monocytes Absolute Auto 0.7 K/mm3 (0.1-0.6); Neutrophils Absolute Auto 5.2 K/mm3 (1.3-6.7); Neutrophils Percent Auto 60.6 % (45.5-73.1); Platelet Count Result 296 k/mm3 (150-375); Red Blood Count 4.38 M/mm3 (4.2-5.4); Red Cell Distribution Width 11.8 % (11.5-14.5); White Blood Count 8.7 K/mm3 (4.5-10.0)
[2024-05-31 17:23] LABS: Alanine Aminotransferase 21 U/L (6-35); Albumin Level 4.3 g/dL (3.5-5.1); Alkaline Phosphatase 98 U/L (38-126); Anion Gap 8 mmol/L (4-12); Aspartate Amino Transferase 39 U/L (14-36); Bilirubin,Total 0.5 mg/dL (0.2-1.3); Blood Urea Nitrogen 12 mg/dL (7-17); Calcium 8.9 mg/dL (8.4-10.2); Carbon Dioxide 28 mmol/L (22-30); Chloride 101 mmol/L (98-107); Estimated Glomerular Filt Rate > 60; Glucose 105 mg/dL (65-110); Potassium 3.8 mmol/L (3.4-5.0); Sodium 137 mmol/L (137-145)
[2024-06-02 01:49] LABS: CA 15-3 11 U/mL (<32)
== END 2024-05-31 15:51 | disposition home or self-care (01) ==
LOC: ANHLAB 15:51
PROVIDERS: PCP Family Medicine; Visit Provider Internal Medicine Hematology & Oncology
DX: C50.412 Malignant neoplasm of upper-outer quadrant of left female breast (principal)
CPT/HCPCS: 36415; 80053; 85025; 86300

== ENCOUNTER 2025-05-30 14:53 | Outpatient (CLI) | payer OTHER, SELFPAY ==
--- OUTSIDE RECORDS SUMMARY | 2025-05-30 15:02 | XMS_ITS | Data Portability ---
Author Organization [facility] Address [address] [place] [address] Care Team Providers Care Crew Leader Name Role Phone LAKESHA TOMPKINS Primary Care Provider [phone] Assessment Encounter Date Assessment Date Assessment LastModified by Organization Details LastModified Time 10/22/2020 10/22/2020 Annual gynecological exam performed. Patient will come back in a year unless there are new symptoms. [email or web address] Not available 10/21/2020 16:16:27 05/17/2022 05/17/2022 Annual gynecological exam performed. Patient will come back in a year unless there are new symptoms. Not available 05/17/2022 13:03:24 12/09/2023 12/09/2023 Annual gynecological exam performed. Patient will come back in a year unless there are new symptoms. [email or web address] Not available 12/09/2023 11:04:36 02/04/2025 02/04/2025 Annual gynecological exam performed. Patient will come back in a year unless there are new symptoms. [email or web address] Not available 02/04/2025 10:04:12 Plan of Treatment Reminders Order Date Submit Date Provider Last Modified By Organization Details Last Modified Time Details Appointments None record ed. Lab None record ed. Referral None record ed. Procedures None record ed. Surgeries None record ed. Imaging None record ed. Medication Orders None record ed. Patient TargetsNo targets recorded. Patient InstructionsNo instructions recorded. Reason for Referral None Reported. Results Created Date Observation Date Name Description Value Unit Range Abnormal Flag Note LastModifiedBy Organization Detail LastModifiedTime 10/23/1910/22/2020 pap, IG Pap test SEE RESULT S BELOW CASE REPOR T: Cytol ogy Gynec ologi sony Repor t Case: [id number] Autho janet knott Provi caroline: Ayesha Ferraro CNM Colle cted: 10/22 1706 Order ing Locat ion: [place] [facility] Recei jennifer: 10/23 0904 First Scree n: Thomas osorio, [place] , [place] Speci men: Scree stephen Pap - Image d, Cervi x STATE MENT OF ADEQU ACY: Satis facto ry for evalu ation Trans forma tion zone compo nent canno t be defin itive ly ident ified due to the prese nce of atrop hy or other hormo nal gaston es FINAL DIAGN OSIS: Negat sal for Intra epith elial Lesio n or Nancy martell (NIL) Atrop hic cell bridgett rn Elect howard bajwa quiana d by Thomas osorio, [place] , [place] on 021 at 2:54 PM ----- ----- ----- ----- ----- ----- ----- ----- ----- ----- ----- ----- ----- ----- ----- ----- ----- ---- HPV RESUL TS: HPV mRNA E6/E7 : No HPV mRNA Detec tiffany NOTE: This high risk HPV mRNA assay detec ts fourt een high- risk HPV types (16, 18, 31, 33, 35, 39, 45, 51, 52, 56, 58, 59, 66, 68) witho ut diffe renti ation . CHART ABLE COMME NT: Note: This speci men was revie wed by a Cytot echno logis t and/o r Patho logis t (as indic ated in this repor t) after evalu ation using the Thinp rep Imagi ng Syste m. CLINI SONY INFOR MATIO N: Menst rual Statu s: LMP (if appli cable ): Clini sony Histo ry/Pr eviou s Pap: Type of Neopl cindy (if appli cable ): Other Histo ry: Hormo malcom (if appli cable ): PAP EDUCA ASHUTOSH L NOTE: The Pap Test is a scree stephen test with an inher ent false negat sal rate. Liqui d-bas e sampl ing may decre ase, but will not elimi angel, false negat sal resul ts. A negat sal resul t does not precl ude the prese nce and/o r devel opmen t of disea se, since the prese nce of abnor mal cells in the sampl e depen ds on the locat ion of the lesio n and sampl ing techn ique. Guille nued regul ar scree stephen is the best metho d of cance r preve ntion . If repor tiffany cytol ogic findi ng do not corre late with physi sony and/o r histo rical findi ngs, furth er inves tigat ion is recom neris d, as clini gina beck nted. Not Available [facility] (Lab) [address], [place], [address], 10/24/2020 14:38:21 05/17/20 22 05/17/2022 IMAGE GUIDE D PAP AND HPV REGAR DLESS image guided Pap, HPV regardless of Pap result SEE RESULT S BELOW CASE REPOR T: Cytol ogy Gynec ologi sony Repor t Case: [id number] Autho janet g Provi caroline: Cyrus Gonzalez Colle cted: 05/17 1737 COMMODITY DIRECTOR Order ing Locat ion: [place] [facility] [place] Recei jennifer: 05/18 0116 First Scree n: Madelin Bynum Speci men: Scree stephen Pap - Image d, Cervi x STATE MENT OF ADEQU ACY: Satis facto ry for evalu ation Trans forma tion zone compo nent prese nt FINAL DIAGN OSIS: Negat sal for Intra epith elial Lesio n or Nancy martell (NIL) . Elect howard bajwa quiana d by Madelin Bynum on 2021 at 3:26 PM ----- ----- ----- ----- ----- ----- ----- ----- ----- ----- ----- ----- ----- ----- ----- ----- ----- ---- HPV RESUL TS: HPV mRNA E6/E7 : No HPV mRNA Detec tiffany NOTE: This high risk HPV mRNA assay detec ts fourt een high- risk HPV types (16, 18, 31, 33, 35, 39, 45, 51, 52, 56, 58, 59, 66, 68) witho ut diffe renti ation . COMME NT: Note: This speci men was revie wed by a Cytot echno logis t and/o r Patho logis t (as indic ated in this repor t) after evalu ation using the Thinp rep Imagi ng Syste m. CLINI SONY INFOR MATIO N: Menst rual Statu s: LMP (if appli cable ): Clini sony Histo ry/Pr eviou s Pap: Type of Neopl cindy (if appli cable ): Signi fican t Clini sony Findi ngs: Other Histo ry: Hormo malcom (if appli cable ): PAP EDUCA ASHUTOSH L NOTE: The Pap Test is a scree stephen test with an inher ent false negat sal rate. Liqui d-bas ed sampl ing may decre ase, but will not elimi angel, false negat sal resul ts. A negat sal resul t does not precl ude the prese nce and/o r devel opmen t of disea se, since the prese nce of abnor mal cells in the sampl e depen ds on the locat ion of the lesio n and sampl ing techn ique. Guille nued regul ar scree stephen is the best metho d of cance r preve ntion . If repor tiffany cytol ogic findi ng do not corre late with physi sony and/o r histo rical findi ngs, furth er inves tigat ion is recom neris d, as clini gina beck nted. Not Available [facility] (Lab) [address], [place], [address], 05/20/2022 16:29:34 12/09/19 24 12/09/2023 IMAGE GUIDE D PAP AND HPV REGAR DLESS image guided Pap, HPV regardless of Pap result SEE RESULT S BELOW abnormal CASE REPOR T: Cytol ogy Gynec ologi sony Repor t Case: [id number] Autho janet knott Provi caroline: Cyrus Gonzalez Colle cted: 12/08 1236 COMMODITY DIRECTOR Order ing Locat ion: [place] [facility] [place] Recei jennifer: 12/11 1146 First Scree n: Mara Lem[place], [place] Patho logis t: Wilfredo Howe MD Speci men: Martin mitchell Pap - Image d, Cervi x STATE MENT OF ADEQU ACY: Satis facto ry for evalu ation Trans forma tion zone compo nent absen t ----- ----- ----- ----- ----- ----- ----- ----- ----- ----- ----- ----- ----- ----- ----- ----- ----- ---- FINAL DIAGN OSIS: Epith elial Cell Abnor malit y, Squam ous Cell: Atypi sony Squam ous Cells of Undet ermin ed James akhtar ce (ASC- [place]). Elect howard whitt by Wilfredo Howe MD on 2023 at 3:07 PM ----- ----- ----- ----- ----- ----- ----- ----- ----- ----- ----- ----- ----- ----- ----- ----- ----- ---- HPV RESUL TS: HPV mRNA E6/E7 : No HPV mRNA Detec tiffany NOTE: This high risk HPV mRNA assay detec ts fourt een high- risk HPV types (16, 18, 31, 33, 35, 39, 45, 51, 52, 56, 58, 59, 66, 68) witho ut diffe renti ation . COMME NT: This speci men was revie wed by a Cytot echno logis t and/o r Patho logis t (as indic ated in this repor t) after evalu ation using the Thinp rep Imagi ng Syste m. CLINI SONY INFOR MATIO N: Menst rual Statu s: LMP (if appli cable ): Clini sony Histo ry/Pr eviou s Pap: Type of Neopl cindy (if appli cable ): Signi fican t Clini sony Findi ngs: Other Histo ry: Hormo malcom (if appli cable ): JEANETTE ANAYA FOLLO W-UP: Follo w up as warra nted, based on curre nt guide lines and indiv idual patie nt consi derat ions. Not Available [facility] (Lab) [address], [place], [address], 12/15/2023 16:11:11 02/05/20 25 02/04/2025 IMAGE GUIDE D PAP AND HPV REGAR DLESS image guided Pap, HPV regardless of Pap result SEE RESULT S BELOW CASE REPOR T: Cytol ogy Gynec ologi sony Repor t Case: [id number] Autho janet knott Provi caroline: Dermo dy, Kenzie , ANP, CUSTOMER SUPPORT ANALYST Colle cted: 02/04 1129 Order ing Locat ion: [place] [facility] [place] Recei jennifer: 02/05 0641 First Scree n: Italia Valdiv[place], [place] Rescr een: DeLuc a, [place], [place] Speci men: Scree stephen Pap - Image d, Vagin a STATE MENT OF ADEQU ACY: Satis facto ry for evalu ation ----- ----- ----- ----- ----- ----- ----- ----- ----- ----- ----- ----- ----- ----- ----- ----- ----- ---- FINAL DIAGN OSIS: Negat sal for Intra epith elial Lesio chasidy or Nancy martell (NIL) . Elect howard whitt by Brianne Lemon, [place] on 2024 at 1231 CDT ----- ----- ----- ----- ----- ----- ----- ----- ----- ----- ----- ----- ----- ----- ----- ----- ----- ---- HPV RESUL TS: HPV mRNA E6/E7 : No HPV mRNA Detec tiffany NOTE: This high risk HPV mRNA assay detec ts fourt een high- risk HPV types (16, 18, 31, 33, 35, 39, 45, 51, 52, 56, 58, 59, 66, 68) witho ut diffe renti ation . COMME NT: This speci men was revie wed by a Cytot echno logis t and/o r Patho logis t (as indic ated in this repor t) after evalu ation using the Thinp rep Imagi ng Syste m. CLINI SONY INFOR MATIO N: Menst rual Statu s: LMP (if appli cable ): Clini sony Histo ry/Pr eviou s Pap: Type of Neopl cindy (if appli cable ): Signi fican t Clini sony Findi ngs: Other Histo ry: Hormo malcom (if appli cable ): PAP EDUCA ASHUTOSH L NOTE: The Pap Test is a scree stephen test with an inher ent false negat sal rate. Liqui d-bas ed sampl ing may decre ase, but will not elimi angel, false negat sal resul ts. A negat sal resul t does not precl ude the prese nce and/o r devel opmen t of disea se, since the prese nce of abnor mal cells in the sampl e depen ds on the locat ion of the lesio n and sampl ing techn ique. Guille nued regul ar scree stephen is the best metho d of cance r preve ntion . If repor tiffany cytol ogic findi ng do not corre late with physi sony and/o r histo rical findi ngs, furth er inves tigat ion is recom neris d, as clini gina beck nted. Not Available [facility] (Lab) [address], [place], [address], 02/06/2025 13:35:07 Result Notes None recorded. Problems Name Problem SNOMED Code Status Onset Date Resolution Date Notes Provider Name and Address Organization Details Recorded Time SNOMED CT Concept Completed 019 10/21/2020 Encntr for veterinary pathologist exam (genera l) (routin e) w/o abn finding s;Pract ice ID: [id number] Rhondapaul perdomo, [facility] 1 16:15:43 Problem Notes None recorded. Procedures Surgical History Date Name Laterality Status Provider Name and Address Organization Details Recorded Time 4 Date of Last Mammogram completed [facility] 02/04/2025 10:10:09 4 Date of Last Colonoscopy completed [facility] 02/04/2025 10:11:01 4 Date of Last Pap Smear completed [facility] 02/04/2025 10:08:15 Other completed [facility] 05/17/2022 13:04:09 Colonoscopy completed [facility] 05/17/2022 13:04:09 Breast Biopsy completed [facility] 05/17/2022 13:04:09 Imaging Results None recorded. Procedure Notes None recorded. Medical Equipment None Reported. Allergies Allergen ID Allergen Name Allergen Category Reaction Reaction Severity Criticality Documentation Date Start Date Code Code System Note Provider Name and Address Organization Details Recorded Time 35472 latex environme nt,medica tion Not available Not available Not available 07/04/2020 81721 91 RxNorm Comme nt: Locat ion: Tricia Mace [facility]; Not Available [facility] 14:20:39 77107 acetamino phen medicatio n Not available Not available Not available 07/04/2020 161 RxNorm Comme nt: Locat ion: Tricia Mace [facility] Cau sativ e Agent : Vicod in; Rhonda perdomo, [facility] 17:17:19 90015 hydrocodo ne Not available Not available Not available Not available 10/22/2020 5489 RxNorm Rhonda perdomo, [facility] 17:17:37 Medications Name Sig Start Date Stop Date Status Note LastModified by Organization Details LastModified Time anastrozo le 1 mg tablet 05/17 completed Not Available Not Available Not Available venlafaxi ne ER 37.5 mg capsule,e xtended release 24 hr take 1 capsule by oral route every day with food 10/21 completed Prescrib ed Elsewher e: Yes Loca tion: [facility] M odify By: joe tomas DateTime : 04/25/20 19 04:00:00 PM Not Available Not Available Not Available cetirizin e 10 mg tablet TAKE 1 TABLET BY MOUTH DAILY 12/08 completed Not Available Not Available Not Available benzonata te 200 mg capsule TAKE 1 CAPSULE BY MOUTH THREE TIMES DAILY NEEDED FOR COUGH 02/04 completed Not Available Not Available Not Available tolterodi ne ER 4 mg capsule,e xtended release 24 hr TAKE 1 CAPSULE BY MOUTH ONCE DAILY active Not Available Not Available No t Available meloxicam 15 mg tablet TAKE 1 TABLET BY MOUTH EVERY DAY 12/08 completed Not Available Not Available Not Available venlafaxi ne ER 150 mg capsule,e xtended release 24 hr 02/04 completed Not Available Not Available Not Available diphenoxy late-atro pine 2.5 mg-0.025 mg tablet TAKE 1 TABLET BY MOUTH TWICE DAILY FOR 10 DAYS NEEDED 05/17 completed Not Available Not Available Not Available topiramat e 25 mg tablet TAKE 1 TABLET BY MOUTH TWICE DAILY 12/08 completed Not Available Not Available Not Available acetamino phen 300 mg-codein e 30 mg tablet TAKE 1 TABLET BY MOUTH EVERY 12 HOURS NEEDED FOR PAIN active Not Available Not Available No t Available alprazola m 0.5 mg tablet TAKE 1 TABLET BY MOUTH ONCE DAILY active Not Available Not Available No t Available Alprazola m Intensol 1 mg/mL oral concentra te take 0.25 millilit er by oral route 3 times every day mixed with water, juice, soda, soda-lik e beverage , applesau ce or pudding 10/21 completed Prescrib ed Elsewher e: Yes [facility] By: joe tomas DateTime : 04/25/20 04:00:00 PM Not Available Not Available Not Available ergocalci ferol (vitamin D2) 1,250 mcg (50,000 unit) capsule TAKE 1 CAPSULE BY MOUTH WEEKLY FOR 83 DAYS 12/08 completed Not Available Not Available Not Available tamoxifen 20 mg tablet 12/08 completed Not Available Not Available Not Available metoclopr amide 10 mg tablet TAKE 1 TABLET BY MOUTH EVERY 6 HOURS NEEDED FOR NAUSEA AND VOMITING 02/04 completed Not Available Not Available Not Available amoxicill in 875 mg-potass ium clavulana te 125 mg tablet TAKE 1 TABLET BY MOUTH TWICE DAILY FOR 10 DAYS 12/08 completed Not Available Not Available Not Available duloxetin e 60 mg capsule,d elayed release TAKE 1 CAPSULE BY MOUTH ONCE DAILY active Not Available Not Available No t Available sumatript an 12/08 completed Not Available Not Available Not Available anastrozo le 05/17 completed Not Available Not Available Not Available venlafaxi ne 05/17 completed Not Available Not Available Not Available cetirizin e 05/17 completed Not Available Not Available Not Available topiramat e 05/17 completed Not Available Not Available Not Available Soltamox 20 mg/10 mL oral solution 10/21 completed Prescrib ed Elsewher e: Yes [facility] By: joe tomas DateTime : 04/25/20 04:00:00 PM Not Available Not Available Not Available hydrochlo rothiazid e 12.5 mg tablet TAKE 1 TABLET BY MOUTH EVERY DAY IN THE MORNING 05/17 completed Not Available Not Available Not Available peg 3350-elec trolytes 236 gram-22.7 4 gram-6.74 gram-5.86 gram solution TAKE DIRECTED PER THE WRITTEN INSTRUCT IONS THAT WERE MAILED TO YOU 02/04 completed Not Available Not Available Not Available Vitamin D2 02/04 completed Not Available Not Available Not Available Mucus DM 30 mg-600 mg tablet,ex tended release TAKE 1 BY MOUTH EVERY 12 HOURS active Not Available Not Available No t Available Vitals Date Recorded Body height Body mass index (BMI) Body weight Systolic And Diastolic Provider Name and Address Organization Details Last Updated DateTime 10/22/2020 167.64 cm 34.2 kg/m2 68393.58 g 137/80 mm[Hg] Rhonda Callahan [facility] 10/22/2020 17:17:13 Date Recorded Body weight Systolic And Diastolic Provider Name and Address Organization Details Last Updated DateTime 12/09/2023 862136.19 g 132/85 mm[Hg] Anuradha Negrete [facility] 12/09/2023 11:06:26 Date Recorded Body height Body mass index (BMI) Body weight Systolic And Diastolic Provider Name and Address Organization Details Last Updated DateTime 02/04/2025 161.29 cm 37.8 kg/m2 71303.54 g 117/76 mm[Hg] Valeria Ibarra [facility] 02/04/2025 10:06:11 Date Recorded Body height Body mass index (BMI) Body weight Systolic And Diastolic Provider Name and Address Organization Details Last Updated DateTime 05/17/2022 160.66 cm 38.5 kg/m2 13962.73 g 118/74 mm[Hg] Anuradha Peralta [facility] 05/17/2022 13:03:55 Social History Question Answer Notes LastModified by Organizat ion Details LastModified Time Tobacco Smoking Status Never Smoker Anuradha perdomo [facility] 05/17/2022 13:04:06 Do You Have An Advance Directive? No Information n ot available 05/17/2022 How Many Years Have You Consumed Alcohol? 35 Information not available 05/17/2022 Are You Blind Or Do You Have Difficulty Seeing? No Information n ot available 05/17/2022 What Is Your Level Of Caffeine Consumption? Occasional Information not available 05/17/2022 How Much Tobacco Do You Chew? None Information not available 05/17/2022 In The 14 Days Before Symptom Onset, Have You Had Close Contact With A Laboratory-confirm ed COVID-19 While That Case Was Ill? No Information n ot available 05/17/2022 In The 14 Days Before Symptom Onset, Have You Had Close Contact With A Person Who Is Under Investigation For COVID-19 While That Person Was Ill? No Information not available 05/17/2022 Have You Been To An Area Known To Be High Risk For COVID-19? No Information not available 05/17/2022 Are You Deaf Or Do You Have Serious Difficulty Hearing? No Information not available 05/17/2022 What Type Of Diet Are You Following? REGULAR Information n ot available 05/17/2022 What Is The Highest Grade Or Level Of School You Have Completed Or The Highest Degree You Have Received? [id number] Information not available 05/17/2022 Are There Any Guns Present In Your Home? No Information not available 05/17/2022 Have You Ever Been Counseled For Unhealthy Alcohol Use? No Information not available 02/04/2025 Do You Use Protection During Sex? No Information not available 05/17/2022 Do You Use Your Seat Belt Or Car Seat Routinely? Yes Information not available 05/17/2022 Are You Sexually Active? Yes [email or web address] Information not available 02/04/2025 Do You Have Smoke And Carbon Monoxide Detectors In Your Home? Yes Information not available 05/17/2022 How Much Tobacco Do You Smoke? No Information not available 05/17/2022 Do You Use Sunscreen Routinely? Yes Information not available 05/17/2022 Has Tobacco Cessation Counseling Been Provided? No [email or web address] Information not available 02/04/2025 Have You Used IV Drugs? No Information not available 05/17/2022 Do You Have Difficulty Walking Or Climbing Stairs? No Information not available 05/17/2022 Sex: Unknown Functional Status Question Answer Note LastModified by Organizat ion Details LastModified Time Do you use any illicit or recreational drugs? No Information not available 05/17/2022 Do you or have you ever used any other forms of tobacco or nicotine? No [email or web address] Information not available 02/04/2025 What is your level of alcohol consumption? Occasional Information not available 05/17/2022 Are you currently employed? Yes [email or web address] Information not available 02/04/2025 Are you able to walk independently without assistance or assistive devices? [email or web address] Information not available 05/17/2022 Are you able to care for yourself independently? 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 No Information not available 05/17/2022 What is your exercise level? Occasional Information not available 05/17/2022 Mental Status Question Answer Note LastModified by Organization D etails LastModified Time Do you feel stressed (tense, restless, nervous, or anxious, or unable to sleep at night)? [id number] Information not available 05/17/2022 Family History Relationship Description Onset Age of this Age Resolved Age Notes LastModified by Organization Details LastModified Time Father Hypertensive disorder [email or web address] Not available 2020 17:19:27 Father Diabetes mellitus [email or web address] Not available 2020 17:19:32 Maternal Aunt Malignant neoplasm of breast [email or web address] Not available 2020 17:19:42 Medical History Condition Response Anxiety Disorder Y Other Y Breast Cancer Y Depression/ depression Y Acid Reflux (GERD) Y Heart Disease Y Gynecological History Statement/Question Response Abnormal Pap Y Date of Last Mammogram 05/18/2024 STIs/STDs N HPV Vaccine N Current Control Method Menopause Age at First Child 38 If Post Menopausal, Age at Menopause 49 Date of Last Colonoscopy 02/16/2024 Most Recent Bone Density Sexually Active? Y Menses Monthly N Age of first menstrual cycle 14 Date of Last Pap Smear 12/09/2023 Sexual Problems? N LMP Unknown Obstetrics History GPAL:G 1 P 0 1 0 1 Type Value Premature 1 Living 1 Total 1 Past Encounters Encounter ID Performer Location Encounter Start Date Encounter Closed Date Diagnosis/Indication Diagnosis SNOMED-CT Code Diagnosis ICD10 Code Diagnosis IMO Codes Diagnosis Note [id number] Olive Murcia [facility] [address],[place] [address] 10/22/2020 17:06:14 10/23/2020 15:42:23 Gynecologic examination [id number] Z01.419 Suggested Calcium with Vitamin D 1200-1500m g daily. Patient advised to get an annual flu shot in the fall and she could obtain at [facility] or [facility] care clinic. Also to obtain TDap vaccinatio n if you have not had one in the last 10 years. Recommend yearly mammograms . Encouraged monthly self breast exams. Encourage safe sexual practices, to use condoms and limit partners if not already in a monogamous relationsh ip. Engage in daily exercise of low impact aerobic exercise 45-60 minutes 4-5 times weekly. Avoid tobacco and illicit drugs as well as using moderation with alcohol intake less than 1-2 8 oz beverages daily. This lifestyle behavior pattern will lead to less health conditions and longer life span. If BMI greater than 25 weight watchers or dietary consult advised. All questions have been answered. Patient appears to understand informatio n, but if you have any questions please call or respond to this email. Pap/hpv sent Anastrozol e Rx'd by oncologist breast. Doing well overall. Pap/hpv last done was wnl Monogamous Std screening declined. Mammo completed by oncologist [id number] Olive Murcia [facility] [address] [address] 05/17/2022 12:47:38 05/19/2022 16:15:14 Gynecologic examination [id number] Z01.419 Suggested Calcium with Vitamin D 1200-1500m g daily. Patient advised to get an annual flu shot in the fall and she could obtain at [facility] or [facility] care clinic. Also to obtain TDap vaccinatio n if you have not had one in the last 10 years. Recommend yearly mammograms . Encouraged monthly self breast exams. Encourage safe sexual practices, to use condoms and limit partners if not already in a monogamous relationsh ip. Engage in daily exercise of low impact aerobic exercise 45-60 minutes 4-5 times weekly. Avoid tobacco and illicit drugs as well as using moderation with alcohol intake less than 1-2 8 oz beverages daily. This lifestyle behavior pattern will lead to less health conditions and longer life span. If BMI greater than 25 weight watchers or dietary consult advised. All questions have been answered. Patient appears to understand informatio n, but if you have any questions please call or respond to this email. Pap/hpv sent STD Screen declined Genetic Screen discussed Colon Screen pcp Dexa Screen pcp Routine Labs pcpMagilmao-b reast specialist [id number] [facility] [address] [address] 12/09/2023 11:02:16 12/09/2023 13:24:53 Gynecologic examination [id number] Z01.419 Z11.51 Suggested Calcium with Vitamin D 1200-1500m g daily. Patient advised to get an annual flu shot in the fall and she could obtain at [facility] or [facility]. Also to obtain TDap vaccinatio n if you have not had one in the last 10 years. Recommend yearly mammograms . Encouraged monthly self breast exams. Encourage safe sexual practices, to use condoms and limit partners if not already in a monogamous relationsh ip. Engage in daily exercise of low impact aerobic exercise 45-60 minutes 4-5 times weekly. Avoid tobacco and illicit drugs as well as using moderation with alcohol intake less than 1-2 8 oz beverages daily. This lifestyle behavior pattern will lead to less health conditions and longer life span. If BMI greater than 25 weight watchers or dietary consult advised. All questions have been answered. Patient appears to understand informatio n, but if you have any questions please call or respond to this email. Pap/hpv sent STD Screen declined Genetic Screen discussed Colon Screen PCP Dexa Screen PCP Routine Labs PCPSee's oncologist -mammos [id number] Giovanni Doll MD [facility] [address] [address] 02/04/2025 09:51:13 02/04/2025 10:43:55 Well woman health examination [id number] Z01.419 [id number] Annual gynecologi sony exam performed. Patient will come back in a year unless there are new symptoms. Suggest Calcium with Vitamin D if not eating in diet. Patient advised to get annual flu shot. Recommend yearly physicals and perform monthly breast exams. Genetic testing is available for patients with family history of cancer. Engage in safe sexual practices, use condoms. Encouraged to have daily exercise. Avoid tobacco and illicit drugs, moderation of alcohol. If BMI greater than 25 dietary consult advised. If you have any questions please call or email. mammogram- UTD; scheduled by oncologist in May 2025 colon cancer screening - UTD PCP DEXA scan- n/a Pap smear- pap w/ HPV collected (HX ASCUS, HPV negative in 2023) laboratory evaluation - PCP/oncolo gist STI testing - declined Health Concerns Section Related Observation LastModified by Organization Detai ls LastModified Time None Recorded Concern Status LastModified by Organization Details LastModified Time None Recorded Advance Directives Directive N: Payers Insurance Date Sequence Insurance Name Policy Number Policy Stiles Covered Member ID Stiles Member ID Guarantor Name 02/04/2025 1 [facility] ([facility]) [id number] Kirstie Najera [id number] Kirstie Najera 02/04/2025 1 [facility] [id number] Kirstie Najera [id number] Kirstie Najera Notes Date Note Type Note Provider Name and Address Organization Details Recorded Time 1 text/html 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 For vaginal bleeding, patient reportshistory of menopause having occurredandno history of post menopausal bleeding. For urinary symptoms, patient reportsno hematuria,no incontinence,no nocturia, andno urinary frequency. For vulva, patient reportsno genital lesionandno vulvar atrophy. For vagina, patient reportsnormal vaginal dischargeandno vaginal atrophy.Breast symptomsFor breast, patient reportsno breast lump,no nipple discharge, andno breast pain.Psychological symptomsFor sexual complaints, patient reportsno sexual complaints. For psychological symptoms, patient reportsno depressionandno anxiety.Preventative measuresFor preventive measures, patient reportsencourage regular mammograms starting age 40,encourage self breast examination,encourage regular exercise,encourage no tobacco use,mammogram performed within the past year, andhistory of recent colonoscopy. Olive Murcia [facility] [address], [place], [address], [facility] 10/22/2020 17:49:51 2 text/html Annual GYNReported by PatientHistoryFor history, patient reportsno gynecologic complaints.Genitourinary symptomsFor menstrual cycle, patient reportsnormal menses (endometrial ablation & on tamoxifen for breast cancer). For urinary symptoms, patient reportsno hematuriaandno incontinence. For vulva, patient reportsno genital lesion. For vagina, patient reportsnormal vaginal discharge.Breast symptomsFor breast, patient reportsno breast pain,no breast lump, andno nipple discharge.ContraceptionFo r current contraception, patient reportssatisfied with current contraception (menopause on tamoxifen).Endocrine symptomsFor sexual complaints, patient reportsno sexual complaints,no pain during intercourse, andnormal libido. For menopausal symptoms, patient reportsno menopausal symptomsandnormal vaginal lubrication.Psychological symptomsFor psychological symptoms, patient reportsno depression,no anxiety, andno pmdd.Preventative measuresFor preventive measures, patient reportsencourage self breast examination,encourage regular exercise,encourage no tobacco use,encourage regular mammograms starting age 40,followed with yearly pap smears, andmammogram performed within the past year. Olive Murcia [facility] [address], [place], [address], [facility] 05/19/2022 11:44:55 4 text/html 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 For vaginal bleeding, patient reportshistory of menopause having occurredandno history of post menopausal bleeding. For urinary symptoms, patient reportsno hematuria,no incontinence,no nocturia, andno urinary frequency. For vulva, patient reportsno genital lesionandno vulvar atrophy. For vagina, patient reportsnormal vaginal dischargeandno vaginal atrophy.Breast symptomsFor breast, patient reportsno breast lump,no nipple discharge, andno breast pain.Psychological symptomsFor sexual complaints, patient reportsno sexual complaints. For psychological symptoms, patient reportsno depressionandno anxiety.Preventative measuresFor preventive measures, patient reportsencourage regular mammograms starting age 40,encourage self breast examination,encourage regular exercise,encourage no tobacco use,mammogram performed within the past year (see's her oncologist), andhistory of recent colonoscopy. Olive Murcia, [facility]- [address], [place], [address], [facility] 12/09/2023 13:00:09 5 text/html 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 For vaginal bleeding, patient reportshistory of menopause having occurredandno history of post menopausal bleeding. For urinary symptoms, patient reportsno hematuria,no incontinence,no nocturia, andno urinary frequency. For vulva, patient reportsno genital lesionandno vulvar atrophy. For vagina, patient reportsnormal vaginal dischargeandno vaginal atrophy.Breast symptomsFor breast, patient reportsno breast lump,no nipple discharge, andno breast pain.Psychological symptomsFor sexual complaints, patient reportsno sexual complaints. For psychological symptoms, patient reportsno depressionandno anxiety.Preventative measuresFor preventive measures, patient reportsencourage regular mammograms starting age 40,encourage self breast examination,encourage regular exercise, andencourage no tobacco use. Patient presents for annual well woman exam. Patient denies concerns today. KENZIE LANGFORD NP [address], [place], [address], [facility] 02/04/2025 10:40:14 OBGyn Episode Ob Episode Information Episode Created Date Number of Fetuses Patient Bloodtype Patient rh Status Prepregnancy Weight lbs Domestic Partner Domestic Partner Phone Father Name Supervisor [employer] Status 10/22/19 21 1 CLOSED Fetus Data First Name Last Name Admitted to NICU Weight (g) Sex Living Outcome Pediatric Complications Fetus ID Race Codes Race Delivery Type Prematur e [id number] Vaginal Delivery Osorio Calculation Initial Osorio Date Initial Exam Date Initial Exam Provider Initial Ultrasound Date Last Menstrual Period Date Ultra Sound Weeks Gestation 0 Eighteen To Twenty Week Osorio Update Ultra Sound Date Fundal Height At Umbil Quickening Date Ultra Sound Latest Weeks Gestation Final Osorio Confirmed By Final Osorio Confirmed Date Final Osorio Date Ultra Sound Latest Days Gestation 0 0 Menstrual History Last Menstrual Date Menses Monthly On Bcp Conception Prior Menses Frequency Hcg Plus Date Menarche Onset Age Delivery Information Delivery Date Delivery Type Labor Anesthesia Weeks Gestation Incision Type Labor Labor Length Hrs Delivered By Post Complications Tubal Sterilization Discharge Date Comments 9 Discharge Information Feeding Method Contraceptive Method Maternal HG B and HCT Levels
--- OUTSIDE RECORDS SUMMARY | 2025-05-30 15:02 | XMS_ITS | Clinical Summary ---
Author Organization [facility] Rafi Roberts Address [address] [place] [address] Care Team Providers Care Global Ceo Name Role Phone Lauri Lancaster MD Primary Care Provider [phone] Allergies Active Allergy Reactions Criticality Noted Date Comments Hydrocodone-Acetaminophen Itching Low 04/23/2019 Latex Itching,Rash Low 05/12/2016 Medications ergocalciferol, vitamin D2, (VITAMIN D ORAL) Take by mouth. Active acetaminophen with codeine (ACETAMINOPHEN- CODEINE ORAL) Take by mouth. Active ALPRAZolam (XANAX) 0.5 mg tablet Take 0.5 mg by mouth nightly as needed for Anxiety. Active ergocalciferol (VITAMIN D2) 50,000 unit capsule TK 1 C PO WEEKLY 08/08/2019 Active cetirizine (ZyrTEC) 10 mg tablet TK 1 T PO QD 12/18/2019 Active azelastine (ASTELIN) 137 mcg/actuation nasal spray U 1 SPR IEN BID 12/18/2019 Active hydroCHLOROthia zide (HYDRODIURIL) 12.5 mg tablet 06/29/2020 Acti ve levoFLOXacin (LEVAQUIN) 500 mg tablet TK 1 T PO QD FOR 7 DAYS 06/06/2020 Active acetaminophen-c odeine (TYLENOL #3) 300-30 mg tablet TK 1 T PO Q 6 H PRN 05/23/2020 Active MELOXICAM ORAL Take by mouth. Active topiramate (TOPAMAX) 25 mg tablet Take 25 mg by mouth 2 times daily. 11/19/2021 Active SUMAtriptan (Imitrex) 50 mg tabletIndicatio ns:Malignant neoplasm of upper-outer quadrant of left breast in female, estrogen receptor positive (CMS/HCC) Take 1 Tablet (50 mg) by mouth daily. may repeat in 2 hours; max dose 200mg in 24 hours 90 Tablet 3 05/18/2022 Active tolterodine (DETROL LA) 4 mg Extended Release 24 hour capsule Take 4 mg by mouth daily. 01/27/2023 Active DULoxetine (CYMBALTA) 60 mg Capsule, Delayed Release(E.C.) Take 1 capsule by mouth once daily 90 Capsule 02/05/2025 Active Active Problems Problem Noted Date Diagnosed Date Periodic limb movement disorder 07/04/2020 Postmenopausal 07/04/2020 Malignant neoplasm of upper- outer quadrant of left breast in female, estrogen receptor positive 08/15/2019 Encounters Date Type Department Care Team Description 04/23/2025 External Device Data ST[facility] ABSTRACTION Provider, Abstract 03/19/2025 External Device Data [facility] ABSTRACTION Provider, Abstract 03/05/2025 External Device Data ST[facility] ABSTRACTION Provider, Abstract from Last 3 Months Family History Medical History Relation Name Comments Heart Disease Brother Diabetes Father Heart Disease Father Heart Disease Mother Relation Name Status Comments Brother Alive Father Alive Mother Alive Sister 1 Alive Sister 2 Alive Social History Tobacco Use Types Packs/Day Years Used Date Smoking Tobacco: Never Smokeless Tobacco: Never Tobacco Cessation:Counseling Given: Not Answered Alcohol Use Standard Drinks/Week Comments Yes 0 (1 standard drink = 0.6 oz pur e alcohol) Comments No Sex and Gender Information Value Date Recorded Sex Assigned at Not on file Legal Sex Female 3:48 PM CDT Gender Identity Not on file Sexual Orientation Not on file Last Filed Vital Signs Vital Sign Reading Time Taken Comments Blood Pressure 114/72 06/05/2024 3:29 PM MORTARMAN Pulse 94 06/05/2024 3:29 PM MORTARMAN Temperature 36.7 C (98 F) 06/05/2024 3:29 PM MORTARMAN Respiratory Rate 17 06/05/2024 3:29 PM MORTARMAN Oxygen Saturation 98% 06/05/2024 3:29 PM MORTARMAN Inhaled Oxygen Concentration - - Weight 99.7 kg (219 lb 12.8 oz) 06/05/2024 3:29 PM MORTARMAN Height 162.6 cm (5' 4) 12/30/2021 1:28 PM CDT Body Mass Index 37.73 12/30/2021 1:28 PM CDT Plan of Treatment Upcoming Encounters Date Type Department Care Team (Late st Contact Info) Description 06/12/2025 10:45 AM MORTARMAN Office Visit [facility] Oncology and Hematology [facility] [address] [facility] [address] [place] [address] Baron Reyes MD [address] [facility] [address] [place] [address] Health Maintenance Due Date Last Done Comments Pre-Diabetes and Diabetes Screening 1972 DTAP/TDAP/TD VACCINES (1 - Tdap) 10/07/1991 HEPATITIS B VACCINES (1 of 3 - 19+ 3-dose series) 10/07/1991 HPV/Cotest (21-29) 1993 HPV/Cotest (30-65) 2002 COLORECTAL SCREENING 2017 Colorectal Cancer Screening 2017 FIT-DNA Q 3 years 2017 FIT/FOBT Q 1 year 2017 Flex Sig/CT Colonography Q 5 years 2017 ZOSTER VACCINE (1 of 2) 2022 INFLUENZA VACCINE (#1) 2025 BREAST CANCER SCREENING 05/29/2025 05/29/20 24, 05/27/2023, 04/30/2020 CERVICAL CANCER SCREENING 12/08/2026 PAP SMEAR 12/08/2026 12/09/2023, 04/19, 10/22/2020 Procedures Procedure Name Priority Date/Time Associated Diagnosis Comments MAMMO SCREENING BILAT Routine 05/29/2024 12:11 PM MORTARMAN from Last 3 Months or Most Recently Relevant to Health Maintenance Results * MAMMO SCREENING BILAT (05/29/2024 12:11 PM MORTARMAN) Anatomical Region Laterality Modality Breast Bilateral Mammography Baron Reyes MD MAMMO ORDERABLES Final Result from Last 3 Months or Most Recently Relevant to Health Maintenance Insurance [facility] [id number] Care Teams Global Ceo Relationship Specialty Start Date End Date Lauri Lancaster MD [address] [place] [phone] PCP - General Family Practice 04/23/19
[2025-05-30 15:15] LABS: Hematocrit 45.7 % (37.0-47.0); Hemoglobin 15.0 g/dL (12.0-15.0); Immature Granulocyte Percent A 0.2 % (0-0.5); Lymphocytes Absolute Auto 2.31 K/mm3 (0.9-3.2); Mean Corpuscular HGB Conc 32.8 g/dl (32-36); Mean Corpuscular Hemoglobin 31.5 pg (26-34); Mean Corpuscular Volume 96.0 fl (80-100); Nucleated Red Blood Cells Absolute Auto 0.000 K/mm3 (0.0-0.012); Nucleated Red Blood Cells Perc 0.0 % (0.0-0.2); Platelet Count Result 312 k/mm3 (150-375); Red Blood Count 4.76 M/mm3 (4.2-5.4); White Blood Count 8.9 K/mm3 (4.5-10.0)
[2025-05-30 16:23] LABS: Alanine Aminotransferase 33 U/L (6-35); Albumin Level 4.5 g/dL (3.5-5.1); Alkaline Phosphatase 107 U/L (38-126); Anion Gap 6 mmol/L (4-12); Aspartate Amino Transferase 56 U/L (14-36); Bilirubin,Total 0.5 mg/dL (0.2-1.3); Blood Urea Nitrogen 15 mg/dL (7-17); Calcium 9.6 mg/dL (8.4-10.2); Carbon Dioxide 29 mmol/L (22-30); Chloride 101 mmol/L (98-107); Estimated Glomerular Filt Rate 58; Glucose 112 mg/dL (65-110); Potassium 4.5 mmol/L (3.4-5.0); Sodium 136 mmol/L (137-145); Total Protein 8.3 g/dL (6.3-8.2)
== END 2025-05-30 14:54 | disposition home or self-care (01) ==
LOC: ANHLAB 14:54
PROVIDERS: PCP Family Medicine; Visit Provider Internal Medicine Hematology & Oncology
DX: C50.412 Malignant neoplasm of upper-outer quadrant of left female breast (principal); Z17.0 Estrogen receptor positive status [ER+]
CPT/HCPCS: 36415; 80053; 85025; 86300

== ENCOUNTER 2025-05-30 15:08 | Outpatient (CLI) | payer OTHER, SELFPAY ==
--- NOTE | ~2025-05-30 | MM_ITS ---
EXAMINATION: MM screening juana BI w aurora HISTORY: Screening TECHNIQUE: Craniocaudal and mediolateral oblique 3-D tomosynthesis images were obtained and synthetic 2-D images were generated. CAD analysis was submitted and interpreted. COMPARISON: Comparison to multiple prior studies sequentially, with oldest reviewed study dated 04/18/2019. BREAST PARENCHYMAL COMPOSITION: Not dense: There are scattered areas of fibroglandular density. FINDINGS: Stable architectural distortion upper outer quadrant of the left breast, consistent with prior lumpectomy site. There is no evidence of suspicious mass, calcification, or architectural distortion to suggest malignancy in either breast. There has been no suspicious interval change. IMPRESSION: 1. No mammographic evidence of malignancy. 2. Recommend routine screening mammography in one year. BI-RADS Category 2: Benign finding(s). Reviewed, dictated and finalized at location B. [facility] [employer]
== END 2025-05-30 15:09 | disposition home or self-care (01) ==
LOC: ANHFOHIMG 15:10
PROVIDERS: PCP Family Medicine; Visit Provider Internal Medicine Hematology & Oncology
DX: Z12.31 Encounter for screening mammogram for malignant neoplasm of breast (principal)
CPT/HCPCS: 77063; 77067